=== PATIENT | male | born 1990 | race Caucasian/White ===

== ENCOUNTER 2021-10-12 17:27 | Emergency (ER) | payer SELFPAY ==
[~2021-10-12] VITALS: Wt 74.8 kg
[~2021-10-12 17:27] MED LIST: BACTRIM DS 8001 TA1 PO; DIFLUCAN150 MG PO; FLEXERIL5 MG PO; IBU-8800 MG PO; MOTRIN600 MG PO; MOTRIN800 MG PO; Motrin,Rufen800 MG PO; NAPROSYN500 MG PO; NKHM; Nizoral 2%15 GM PO
[2021-10-12] MEDS ORDERED: NAPROXEN250 MG PO (18:40)
[2021-10-12] MEDS ORDERED: TYLENOL325 M1 PO (18:40)
== END 2021-10-12 18:46 | disposition home or self-care (01) ==
LOC: ED 17:27
DX: S40.211A Abrasion of right shoulder, initial encounter (principal); R07.89 Other chest pain; W22.8XXA Striking against or struck by other objects, initial encounter; Y93.89 Activity, other specified; Y92.89 Other specified places as the place of occurrence of the external cause; Y99.8 Other external cause status